=== PATIENT | male | born 1990 | race Two or more races ===

== ENCOUNTER 2021-09-03 15:10 | Inpatient (IN) | payer OTHER ==
[2021-09-03 15:59] VITALS: BMI 20.3
[2021-09-03] MEDS ORDERED: IBUPROFEN 400 MG TABLET (FP) PO PRN (16:28)
[2021-09-03] MEDS ORDERED: LOPERAMIDE HCL 2 MG CAPSULE PO PRN (16:28)
[2021-09-03] MEDS ORDERED: MAGNESIUM HYDROX 2400MG/30ML ORAL SUSPENSION 30 ML CUP PO PRN (16:28)
[2021-09-03] MEDS ORDERED: ACETAMINOPHEN 325 MG TABLET (FP) PO PRN ×2 (16:28)
[2021-09-03] MEDS ORDERED: BISMUTH SUBSALICYLATE 524 MG/30 ML PO PRN (16:28)
[2021-09-03] MEDS ORDERED: MAG HYDROX/AL HYDROX/SIMETH 30 ML UNIT-DOSE CUP PO PRN (16:28)
[2021-09-03] MEDS ORDERED: MAGNESIUM CITRATE 300 ML BOTTLE PO PRN (16:28)
[2021-09-03] MEDS ORDERED: DICYCLOMINE HCL 10 MG CAPSULE PO PRN (16:28)
[2021-09-03] MEDS ORDERED: ONDANSETRON *ODT* 4 MG TABLET SL PRN (16:28)
[2021-09-03] MEDS ORDERED: MENTHOL/PHENOL 1 EACH UD MM PRN (16:28)
[2021-09-03] MEDS: THIAMINE HCL 100 MG TABLET (FP) PO SCH (23:46)
[2021-09-03] MEDS: MELATONIN 5 MG TABLETS PO PRN (23:47)
[2021-09-03] MEDS: hydrOXYzine PAMOATE 25 MG CAPSULE (FP) PO PRN (23:59)
[2021-09-04] MEDS ORDERED: chlordiazePOXIDE HCL 25 MG CAPSULE PO PRN (09:40)
[2021-09-04 10:05] LABS: HEMATOCRIT 40.9 % (35.4-49); HEMOGLOBIN 13.9 GM/dL (11.7-16.9); MCH 34.2 pg (25.7-33.7); MEAN CELL VOLUME 100.5 fl (80-96); MEAN PLT VOLUME 7.6 fl (7.5-11.1); PLATELET COUNT 307 10^3/uL (134-434); RBC 4.07 M/mm3 (4.00-5.60); RDW 14.4 % (11.9-15.9); WHITE BLOOD COUNT 5.8 K/mm3 (4.0-10.0)
[2021-09-04 10:18] LABS: ALBUMIN 3.6 g/dl (3.4-5.0)
[2021-09-04 10:19] LABS: BLOOD UREA NITROGEN 8.1 mg/dL (7-18); CALCIUM 9.1 mg/dL (8.5-10.1)
[2021-09-04] MEDS: PRENATAL VITAMINS W/ FOLIC ACID TABLET (FP) PO SCH (10:20)
[2021-09-04 10:21] LABS: CREATININE 0.8 mg/dL (0.55-1.3)
[2021-09-04] MEDS: chlordiazePOXIDE HCL 25 MG CAPSULE PO SCH ×3 (10:22→22:31)
[2021-09-04 10:23] LABS: BILIRUBIN,TOTAL 0.8 mg/dL (0.2-1); TOT PROT 6.9 g/dl (6.4-8.2)
[2021-09-04] MEDS: NICOTINE 10 MG CARTRIDGE (INHALER) IH PRN ×2 (10:23→17:57)
[2021-09-04] MEDS: METHOCARBAMOL 500 MG TABLET PO PRN (17:56)
[2021-09-04] MEDS: MELATONIN 5 MG TABLETS PO PRN (22:31)
[2021-09-04] MEDS: THIAMINE HCL 100 MG TABLET (FP) PO SCH (22:31)
[2021-09-05] MEDS: chlordiazePOXIDE HCL 25 MG CAPSULE PO SCH ×4 (05:21→22:25)
[2021-09-05] MEDS: NICOTINE 10 MG CARTRIDGE (INHALER) IH PRN ×3 (05:22→22:27)
[2021-09-05] MEDS: PRENATAL VITAMINS W/ FOLIC ACID TABLET (FP) PO SCH (10:16)
[2021-09-05] MEDS: hydrOXYzine PAMOATE 25 MG CAPSULE (FP) PO PRN (10:17)
[2021-09-05] MEDS: METHOCARBAMOL 500 MG TABLET PO PRN ×2 (10:17→22:26)
[2021-09-05] MEDS: MELATONIN 5 MG TABLETS PO PRN (22:25)
[2021-09-05] MEDS: THIAMINE HCL 100 MG TABLET (FP) PO SCH (22:25)
[2021-09-06] MEDS: chlordiazePOXIDE HCL 25 MG CAPSULE PO SCH ×4 (05:21→22:11)
[2021-09-06] MEDS: PRENATAL VITAMINS W/ FOLIC ACID TABLET (FP) PO SCH (10:26)
[2021-09-06] MEDS: METHOCARBAMOL 500 MG TABLET PO PRN ×2 (10:27→18:00)
[2021-09-06] MEDS: NICOTINE 10 MG CARTRIDGE (INHALER) IH PRN ×3 (10:28→20:31)
[2021-09-06] MEDS: THIAMINE HCL 100 MG TABLET (FP) PO SCH (22:12)
[2021-09-06] MEDS: MELATONIN 5 MG TABLETS PO PRN (22:12)
[2021-09-07] MEDS ORDERED: chlordiazePOXIDE HCL 10 MG CAPSULE PO PRN
[2021-09-07] MEDS: chlordiazePOXIDE HCL 10 MG CAPSULE PO SCH ×4 (05:25→22:16)
[2021-09-07] MEDS: NICOTINE 10 MG CARTRIDGE (INHALER) IH PRN ×4 (05:26→22:20)
[2021-09-07] MEDS: PRENATAL VITAMINS W/ FOLIC ACID TABLET (FP) PO SCH (10:19)
[2021-09-07] MEDS: MELATONIN 5 MG TABLETS PO PRN (22:16)
[2021-09-07] MEDS: THIAMINE HCL 100 MG TABLET (FP) PO SCH (22:16)
[2021-09-07] MEDS: METHOCARBAMOL 500 MG TABLET PO PRN (22:19)
[2021-09-08] MEDS: chlordiazePOXIDE HCL 10 MG CAPSULE PO SCH ×2 (05:26→17:54)
[2021-09-08] MEDS: PRENATAL VITAMINS W/ FOLIC ACID TABLET (FP) PO SCH (10:04)
[2021-09-08] MEDS: NICOTINE 10 MG CARTRIDGE (INHALER) IH PRN ×3 (10:04→17:57)
[2021-09-08] MEDS: METHOCARBAMOL 500 MG TABLET PO PRN (17:56)
[2021-09-08] MEDS: THIAMINE HCL 100 MG TABLET (FP) PO SCH (22:07)
[2021-09-08] MEDS: MELATONIN 5 MG TABLETS PO PRN (22:07)
[2021-09-09] MEDS ORDERED: chlordiazePOXIDE HCL 10 MG CAPSULE PO ONE (05:00)
[2021-09-09] MEDS: NICOTINE 10 MG CARTRIDGE (INHALER) IH PRN (07:57)
[2021-09-09 09:07] VITALS: BP 124/71; PULSE 101; TEMP 98
== END 2021-09-09 10:12 | disposition home or self-care (01) | DRG 775 ==
LOC: YASAS 15:10 → UNDOADMIN 23:14 → Y3N 23:14
PROVIDERS: ADMIT Allergy & Immunology; ATTEND Allergy & Immunology
PROC: HZ2ZZZZ Detoxification Services for Substance Abuse Treatment (ICD-10-PCS; principal; 2021-09-03)
DX: F10.230 Alcohol dependence with withdrawal, uncomplicated (principal); F10.220 Alcohol dependence with intoxication, uncomplicated; F12.20 Cannabis dependence, uncomplicated; F17.210 Nicotine dependence, cigarettes, uncomplicated
CPT/HCPCS: 36415; 80053; 85027; 86780; C9803-CS; U0003; U0005